=== PATIENT | male | born 1955 | race Caucasian/White ===

== ENCOUNTER → 2020-08-08 | Day surgery (SDC) | payer MEDICARE, BC ==
[~2020-08-08] MED LIST: Dextrose 5%-0.45% NaCl 1,000 ML IV SCH; Midazolam 1 MG/ML 2 ML SDV ONE; Sodium Chloride 0.9% 10 ML Syringe FLUSH PRN; fentaNYL 100 MCG/2 ML SDV ONE
== END ==
LOC: DL.ENDO 05:50
PROVIDERS: ATTEND Internal Medicine Gastroenterology
DX: Z12.11 Encounter for screening for malignant neoplasm of colon (principal); Z53.09 Procedure and treatment not carried out because of other contraindication; I10 Essential (primary) hypertension; E78.00 Pure hypercholesterolemia, unspecified; E66.09 Other obesity due to excess calories; E78.5 Hyperlipidemia, unspecified; Z86.010 Personal history of colon polyps; Z68.42 Body mass index [BMI] 45.0-49.9, adult
CPT/HCPCS: J7042